=== PATIENT | male | born 1940 | race Caucasian/White ===

== ENCOUNTER 2016-11-10 07:23 | Day surgery (SDC) | payer MEDICARE, OTHER ==
[~2016-11-10 07:23] MED LIST: Brimonidine 0.2% Ophth Soln 5 ML Bottle ONE; Cataract Ophth Solution EYELF PRN; Hypromellose 2.5% Ophth Soln 15 ML Bottle EYELF PRN; Lidocaine 1% 2 ML ONE; Lidocaine 3.5% Ophth Gel 1 ML Bottle ONE; Povidone-Iodine 5% Sterile Ophth Soln 30 ML Bottle ONE; Sodium Chloride 0.9% 10 ML Syringe FLUSH PRN
[2016-11-10] MEDS: Proparacaine 0.5% Ophth Soln 15 ML Bottle EYELF PRN ×2 (07:59→09:36)
[2016-11-10] MEDS ORDERED: Phenylephrine 10% Ophth Soln 5 ML Bot EYELF PRN (08:26)
[2016-11-10] MEDS ORDERED: Lidocaine 1% PF 2 ML SDV INJECT ONE (09:37)
[2016-11-10] MEDS ORDERED: Ciprofloxacin 0.3% Ophth Soln 2.5 ML Bottle EYELF ONE (09:38)
[2016-11-10] MEDS ORDERED: Vancomycin 500 MG SDV EYELF ONE (09:38)
[2016-11-10] MEDS ORDERED: Chondroitin Sulfate/Hyaluronate Sodium Ophth Inj 0.5 ML Syringe IOCULAR ONE (09:38)
[2016-11-10] MEDS ORDERED: Balanced Salt Solution Ophth Irrig 500 ML Bottle IOCULAR ONE (09:39)
[2016-11-10 10:23] VITALS: BP 176/72
--- NOTE | 2016-11-12 07:38 | OR ---
PREOPERATIVE DIAGNOSIS: Senile nuclear cataract, left eye. POSTOPERATIVE DIAGNOSIS: Pseudophakia, left eye. PROCEDURE PERFORMED: Cataract extraction with intraocular lens implantation by phacoemulsification technique, left eye. ANESTHESIA: Topical anesthesia. BLOOD LOSS: None. COMPLICATIONS: None. INDICATIONS: The patient is a 76-year-old gentleman who was found to have a senile nuclear cataract, reducing his best corrected visual acuity. After explaining the risks, benefits, and alternatives of cataract surgery, an informed consent was obtained. DESCRIPTION OF PROCEDURE: After identifying the patient in the preoperative area, the patient was brought to the operating room. The patient was prepped and draped in a sterile fashion. A lid speculum was inserted into the eye. The microscope was brought into the field. Lidocaine gel was applied to the external surface of the eye. A paracentesis was made 3 clock hours away from the surgeon's operating hand. The anterior chamber was anesthetized with preservative-free Lidocaine. The anterior chamber was filled with Viscoat. A clear corneal incision was made at the 180-degree meridian with a 2.75mm keratome. A continuous tear circular capsulorrhexis was performed. The nucleus was hydrodissected with balanced salt solution. The nucleus was sculpted and removed from the eye using a divide and conquer technique with the phacoemulsification handpiece. The residual viscoelastic was removed with the I/A handpiece. The anterior chamber and capsular bag were filled with Amvisc. An CAYETANO lens, model ZCB00 with a power of 21.5 Diopters and a serial number of [id number] was injected into the capsular bag. The lens was rotated completely into the capsular bag with a Sinskey hook. The residual viscoelastic was removed with the I/A handpiece. The anterior chamber was filled with balanced salt solution to a physiologic pressure. The corneal wound was closed with stromal hydration and seen to be water tight by Weck-Cristine sponge testing. The patient received a drop of Zymar and Alphagan at the end of the case. There were no complications of this case. The patient will be followed postoperatively by Dr. Laquita Lomas and Dr. Horacio Steinberg. SKA: 11/10/2016 11:07:08 MODL: 11/10/2016 15:06:05 /[id number]
== END 2016-11-10 10:30 | disposition home or self-care (01) ==
LOC: VM.SDS 07:23
PROVIDERS: ATTEND Ophthalmology
DX: Z96.1 Presence of intraocular lens (principal); H25.12 Age-related nuclear cataract, left eye; I10 Essential (primary) hypertension; E78.5 Hyperlipidemia, unspecified; E11.9 Type 2 diabetes mellitus without complications; N40.0 Benign prostatic hyperplasia without lower urinary tract symptoms; Z88.8 Allergy status to other drugs, medicaments and biological substances; Z79.82 Long term (current) use of aspirin; Z79.899 Other long term (current) drug therapy; Z87.891 Personal history of nicotine dependence
CPT/HCPCS: 00142; 66984; 82962; A9270; C1780; J3370

== ENCOUNTER 2019-06-25 17:41 | Emergency (ER) | payer MEDICARE, OTHER ==
[2019-06-25 18:21] VITALS: BP 161/73; PULSE 54
--- NOTE | 2019-06-25 18:30 | EDM.PDOC ---
ED HPI GENERAL MEDICAL PROBLEM - General Chief Complaint: Lower Extremity Injury/Pain Stated Complaint: FALL Time Seen by Provider: 06/25/19 18:25 Source of Information: Reports: Patient - History of Present Illness INITIAL COMMENTS - FREE TEXT/NARRATIVE: Yoseph Cross" is a 79 y.o male who was at the wellness center today and when he came out to get in his vehicle, he slipped off the curb with his right foot on some ice and fell down. He was able to get up with the help of a passerby and got into his car drove home. He was fine and then when he was sitting at home his right lower leg started to ache and it was quite sore in the back calf region. He did try to put a knee brace on it that he had at home. He called the clinic and asked what to do for the pain and was advised to go to the ER. Right Lower Leg Pain Score (Numeric/FACES): 4 - Related Data Allergies Allergy/AdvReac Type Severity Reaction Status Date / Time HMG-COA-R INHIBITORS Allergy Other Uncoded 06/25/19 18:23 Home Meds: Home Meds Aspirin [Halfprin] 1 tab PO DAILY 11/04/16 [History] Cholecalciferol (Vitamin D3) [Vitamin D3] 1 cap PO DAILY 11/04/16 [History] Lisinopril 1 tab PO DAILY 11/04/16 [History] Metoprolol Tartrate 1 tab PO BID 11/04/16 [History] [place]-3 Fatty Acids [Maxepa] 1,000 mg PO DAILY 11/04/16 [History] Pioglitazone HCl 1 tab PO DAILY 11/04/16 [History] atorvaSTATin [Lipitor] 1 tab PO BEDTIME 11/04/16 [History] glipiZIDE [Glucotrol XL] 1 tab PO DAILY 11/04/16 [History] hydrALAZINE HCl [Hydralazine HCl] 1 tab PO BID 11/04/16 [History] Past Medical History HEENT History: Reports: Cataract Cardiovascular History: Reports: High Cholesterol, Hypertension Respiratory History: Reports: None Gastrointestinal History: Reports: PUD, Other (See Below) Other Gastrointestinal History: H.PYLORI Genitourinary History: Reports: None Musculoskeletal History: Reports: None Neurological History: Reports: Other (See Below) Other Neuro History: [facility] Psychiatric History: Reports: None Endocrine/Metabolic History: Reports: Diabetes, Type II Hematologic History: Reports: None Immunologic History: Reports: None Oncologic (Cancer) History: Reports: None Dermatologic History: Reports: None - Past Surgical History HEENT Surgical History: Reports: Adenoidectomy, Tonsillectomy Cardiovascular Surgical History: Reports: None GI Surgical History: Reports: Colonoscopy Musculoskeletal Surgical History: Reports: None Oncologic Surgical History: Reports: None Review of Systems - Review of Systems Review Of Systems: See Below Constitutional: Reports: No Symptoms Eyes: Reports: No Symptoms Ears: Reports: No Symptoms Nose: Reports: No Symptoms Mouth/Throat: Reports: No Symptoms Respiratory: Reports: No Symptoms Cardiovascular: Reports: No Symptoms GI/Abdominal: Reports: No Symptoms Genitourinary: Reports: No Symptoms Musculoskeletal: Reports: Leg Pain (right lower leg) Skin: Reports: No Symptoms Neurological: Reports: No Symptoms Psychiatric: Reports: No Symptoms ED EXAM, GENERAL - Physical Exam Exam: See Below General Appearance: Alert, WD/WN, No Apparent Distress Ears: Hearing Grossly Normal Nose: Normal Inspection Throat/Mouth: Normal Voice Head: Atraumatic, Normocephalic Neck: Normal Inspection Respiratory/Chest: No Respiratory Distress Cardiovascular: Other (Deferred) GI/Abdominal: Non-Tender (Male) Exam: Deferred Rectal (Males) Exam: Deferred Back Exam: Normal Inspection Extremities: Normal Capillary Refill, Other (note mild pitting edema to right lower leg around soxs, mild tenderness palpated around platellar region with mild effusion, anterior drawer test mildly + with tenderness; lateral and medial ligaments stable, no bruising noted) Neurological: Alert, Oriented, CN II-XII Intact, Normal Cognition, No Motor/ Sensory Deficits (uses a cane for mobility) Course - Vital Signs Text/Narrative:: The patient was seen by the DIRECTOR HEALTH. Xray was ordered. He was given Toradol 40 mg IM for pain. 1899 Xray was reviewed. No acute findings. Results were discussed with the patient and his family. He was placed in a compression knee sleeve. Discharge instructions were given and he was sent home in stable condition. Last Recorded V/S: Last Vital Signs Temp 36.9 C 06/25/19 17:55 Pulse 54 L 06/25/19 17:55 Resp 16 06/25/19 17:55 BP 161/73 H 06/25/19 17:55 Pulse Ox 98 06/25/19 17:55 - Orders/Labs/Meds Orders: Active Orders 24 hr Category Date Time Status Knee 3V Rt [CR] Stat Exams 06/25/19 18:30 Ordered Meds: Medications Discontinued Medications Generic Name Dose Route Start Last Admin Trade Name Anna Marie PRN Reason Stop Dose Admin Ketorolac Tromethamine 30 mg 06/25/19 18:31 06/25/19 18:37 Toradol IM 06/25/19 18:32 30 mg ONETIME ONE Administration - Radiology Interpretation Free Text/Narrative:: XR Right Knee=negative Departure - Departure Time of Disposition: 19:17 Disposition: Home, Self-Care 01 Condition: Good Clinical Impression: Derangement of knee, right - Discharge Information *PRESCRIPTION DRUG MONITORING PROGRAM REVIEWED*: Not Applicable *COPY OF PRESCRIPTION DRUG MONITORING REPORT IN PATIENT SWAPNA: Not Applicable Instructions: How to Use a Cane, Patellar Tendon Tear, How to Use a Knee Immobilizer, Gycf-px-[id number] Forms: ED Department Discharge Additional Instructions: -Acetaminophen 975-1000mg oral every 6 hours for next 5-7 days (Use over the counter medication) -Compression knee sleeve -Limit use of the knee and rest as much as able -Ice/heat as needed to the right knee -Follow up with your PCP in a week for recheck and PCP will set up Orthopedic referral as needed. -Keep your PT appt and have your Physical therapist assess your knee if able. -Return to the ER as needed for any worsening of symptoms Sepsis Event Note - Evaluation Sepsis Screening Result: No Definite Risk - Focused Exam Vital Signs: Vital Signs Temp Pulse Resp BP Pulse Ox 06/25/19 17:55 36.9 C 54 L 16 161/73 H 98 Date Exam was Performed: 06/25/19 Time Exam was Performed: 18:44 - My Orders Last 24 Hours: My Active Orders 06/25/19 18:30 Knee 3V Rt [CR] Stat - Assessment/Plan Last 24 Hours: My Active Orders 06/25/19 18:30 Knee 3V Rt [CR] Stat
[2019-06-25] MEDS ORDERED: Ketorolac 30 MG/ML SDV IM ONE (18:31)
--- NOTE | 2019-06-25 19:25 | CR ---
[id number] RAD/RAD Knee Right 3V EXAM: RAD Knee Right 3V CLINICAL DATA: TRAUMA COMPARISON: NO PREVIOUS SIMILAR EXAM IS AVAILABLE. FINDINGS: No fracture or dislocation is seen. There is no radiopaque foreign body in the soft tissues. There is no air in the soft tissues. There is no cortical thickening or periosteal reaction either. IMPRESSION: NEGATIVE PLAIN FILM EXAM. Cristobal Sales MD 06/25/19 1925 Thank you for allowing us to participate in the care of your patient.
== END 2019-06-25 19:25 | disposition home or self-care (01) ==
LOC: VM.ED 17:41
DX: S89.91XA Unspecified injury of right lower leg, initial encounter (principal); M25.461 Effusion, right knee; I10 Essential (primary) hypertension; E11.9 Type 2 diabetes mellitus without complications; E78.00 Pure hypercholesterolemia, unspecified; Z79.82 Long term (current) use of aspirin; Z79.84 Long term (current) use of oral hypoglycemic drugs; Z79.899 Other long term (current) drug therapy; Z88.8 Allergy status to other drugs, medicaments and biological substances; V48.4XXA Person boarding or alighting a car injured in noncollision transport accident, initial encounter; Y92.410 Unspecified street and highway as the place of occurrence of the external cause
CPT/HCPCS: 73562; 96372; 99283; 99284; J1885

== ENCOUNTER 2024-05-24 17:17 | Emergency (ER) | payer MEDICARE, OTHER ==
[2024-05-24] MEDS: Take Home: Cephalexin 500 MG Cap, 6 Cap Pack PO ONE (18:30)
[2024-05-24 18:56] VITALS: BP 163/79; PULSE 65
== END 2024-05-24 18:35 | disposition home or self-care (01) ==
LOC: VM.ED 17:17
DX: L03.115 Cellulitis of right lower limb (principal); L03.116 Cellulitis of left lower limb; I10 Essential (primary) hypertension; E78.00 Pure hypercholesterolemia, unspecified; E11.9 Type 2 diabetes mellitus without complications; Z90.89 Acquired absence of other organs; Z88.8 Allergy status to other drugs, medicaments and biological substances; Z79.82 Long term (current) use of aspirin; Z79.899 Other long term (current) drug therapy
CPT/HCPCS: 99283; A9270

== ENCOUNTER 2024-06-13 10:15 | Emergency (ER) | payer MEDICARE, OTHER ==
[2024-06-13] MEDS: Bacitracin Oint 1 GM U/D Packet TOP ONE (10:57)
[2024-06-13 11:10] VITALS: BP 144/74; PULSE 59
== END 2024-06-13 11:00 | disposition home or self-care (01) ==
LOC: VM.ED 10:15
DX: S80.822A Blister (nonthermal), left lower leg, initial encounter (principal); I10 Essential (primary) hypertension; E78.00 Pure hypercholesterolemia, unspecified; E11.9 Type 2 diabetes mellitus without complications; Z79.899 Other long term (current) drug therapy; Z79.82 Long term (current) use of aspirin; X50.9XXA Other and unspecified overexertion or strenuous movements or postures, initial encounter
CPT/HCPCS: 99283